=== PATIENT | female | born 1990 | race Caucasian/White ===

== ENCOUNTER 2017-09-04 08:11 | Inpatient (IN) | payer OTHER ==
[~2017-09-04] VITALS: Ht 167.6 cm; Wt 75.0 kg
[~2017-09-04 08:11] MED LIST: AMOXICILLIN500 MG PO; NORCO 5-325 TA1 EACH PO; PROTONIX40 MG PO; ZOFRAN ODT4 MG PO
--- NOTE | 2017-09-10 16:53 | PR ---
[facility] [address] [place], [place] [address] Signed Progress Notes IP Datetime Report Generated by CPN: 09/10/2017 16:53 PROGRESS NOTES: [id number] Impression: Normal progression of labor; Reassuring heart rate Procedures: Epidural Placement Plan: Continue present management Other Plans: Pt requesting epidural Informed Consent Obtain: Vaginal Delivery VITAL SIGNS: [id number] Vital Signs: Reviewed; Within Normal Limits EXAM: [id number] Dilatation: 8.0 Effacement: 95 Station: -2 Uterine Contractions: q2-3m MEMBRANES: [id number] Membrane Status: Ruptured Amniotic Fluid Color: Clear Comments: Pt seen and evaluated. Doing well. Comfortable w/ epidural. Anticipate . Fetus A: [id number] FHR Baseline: 135 Variability: Moderate 6-25bpm Accelerations: 15X15 Decelerations: None FHR Category: Category I Presentation: Vertex Comments on Fetus A: No evidence of metabolic acidosis Fetus B: [id number] Signing Physician: Shae Leonard DO CC: *Electronically Signed* 09/10/17 1657 SHAE LEONARD DO PATIENT NAME: KEELYCARRIJanuary PROGRESS NOTE DATE OF : 89 PHYSICIAN: SHAE LEONARD DO RPT #: [id number] REPORT IS CONFIDENTIAL AND NOT TO BE RELEASED WITHOUT AUTHORIZATION
== END 2017-09-12 11:25 | disposition home or self-care (01) | DRG 775 ==
LOC: FBCO → EDSTATUS 08:11 → FBCO 11:13 → FBC 09-10 08:16
PROVIDERS: ADMIT Obstetrics & Gynecology
PROC: 10E0XZZ Delivery of Products of Conception, External Approach (ICD-10-PCS; principal; 2017-09-10)
PROC: 0KQM0ZZ Repair Perineum Muscle, Open Approach (ICD-10-PCS; 2017-09-10)
PROC: 10907ZC Drainage of Amniotic Fluid, Therapeutic from Products of Conception, Via Natural or Artificial Opening (ICD-10-PCS; 2017-09-10)
PROC: 00HU33Z Insertion of Infusion Device into Spinal Canal, Percutaneous Approach (ICD-10-PCS; 2017-09-10)
PROC: 3E0R3BZ Introduction of Anesthetic Agent into Spinal Canal, Percutaneous Approach (ICD-10-PCS; 2017-09-10)
DX: O70.1 Second degree perineal laceration during delivery (principal); Z37.0 Single live birth; Z3A.40 40 weeks gestation of pregnancy; O99.334 Smoking (tobacco) complicating childbirth; F17.210 Nicotine dependence, cigarettes, uncomplicated
CPT/HCPCS: 01960; 85027; 99406; J2590; J2795; J7120

== ENCOUNTER 2018-10-23 17:58 | Emergency (ER) | payer OTHER ==
[~2018-10-23] VITALS: Ht 167.6 cm; Wt 64.9 kg
== END 2018-10-23 21:55 | disposition home or self-care (01) ==
LOC: ED 17:58
DX: O02.1 Missed abortion (principal); F17.200 Nicotine dependence, unspecified, uncomplicated; Z3A.01 Less than 8 weeks gestation of pregnancy
CPT/HCPCS: 76801; 76817; 80048; 81001; 84702; 85025; 86900; 86901; 99284-25

== ENCOUNTER 2020-09-25 12:58 | Emergency (ER) | payer OTHER ==
[~2020-09-25] VITALS: Ht 167.6 cm; Wt 59.0 kg
[2020-09-25] MEDS ORDERED: ZOFRAN4 MG PO (15:41)
== END 2020-09-25 15:51 | disposition home or self-care (01) ==
LOC: ED 12:58
DX: R11.2 Nausea with vomiting, unspecified (principal); F12.90 Cannabis use, unspecified, uncomplicated; R10.13 Epigastric pain
CPT/HCPCS: 71045; 80053; 81001; 83690; 84703; 85025; 96374; 96375; 99284-25; J1630; J2270; J2405; J7030

== ENCOUNTER 2021-04-21 15:04 | Emergency (ER) | payer OTHER ==
[~2021-04-21] VITALS: Ht 167.6 cm; Wt 59.0 kg
[~2021-04-21 15:04] MED LIST changes: +ZOFRAN4 MG PO
--- OUTSIDE RECORDS SUMMARY | 2021-04-21 15:14 | XMS ---
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 Tamir has no Care Guidelines for this patient. [place] [facility] (12 MO[address] [facility] NOTE: Visits indicate total known visits. ED/C VISIT TRACKING (12 MO.) [facility] COMPLAINT: - VAGINAL BLEEDING,CRAMPS 04/21/2021 13:46 [facility] [place] TYPE: Emergency COMPLAINT: - VAGINAL BLEEDING,CRAMPS 09/25/2020 12:59 [facility] [place] TYPE: Emergency COMPLAINT: - ABDOMINAL PAIN DIAGNOSES: - Nausea with vomiting, unspecified - Epigastric pain - Cannabis use, unspecified, uncomplicated INPATIENT VISIT TRACKING (12 MO.) No inpatient visits to display in this time frame [email or web address]
== END 2021-04-21 19:01 | disposition home or self-care (01) ==
LOC: ED 15:04
DX: O20.0 Threatened abortion (principal); Z3A.01 Less than 8 weeks gestation of pregnancy
CPT/HCPCS: 76801; 76817; 81001; 84702; 85025; 99284-25

== ENCOUNTER 2021-06-02 14:04 | Emergency (ER) | payer OTHER ==
[~2021-06-02] VITALS: Ht 167.6 cm; Wt 59.0 kg
[2021-06-02] MEDS ORDERED: REGLAN10 MG PO (16:59)
[2021-06-02] MEDS ORDERED: PEPCID20 MG PO (16:59)
[2021-06-02] MEDS ORDERED: ONDANSETRON ODT8 MG PO (16:59)
== END 2021-06-02 17:12 | disposition home or self-care (01) ==
LOC: ED 14:04
DX: O99.611 Diseases of the digestive system complicating pregnancy, first trimester (principal); K29.00 Acute gastritis without bleeding; O99.891 Other specified diseases and conditions complicating pregnancy; R11.15 Cyclical vomiting syndrome unrelated to migraine; Z3A.13 13 weeks gestation of pregnancy; Z87.891 Personal history of nicotine dependence
CPT/HCPCS: 80053; 83690; 83735; 85007; 85025; 96374; 96375; 96376; 99284-25; J1170; J2405; J2765; J7030

== ENCOUNTER 2021-06-02 20:56 | Emergency (ER) | payer OTHER ==
[~2021-06-02] VITALS: Ht 167.6 cm; Wt 59.0 kg
[~2021-06-02 20:56] MED LIST changes: +ONDANSETRON ODT8 MG PO; +PEPCID20 MG PO; +REGLAN10 MG PO
--- OUTSIDE RECORDS SUMMARY | 2021-06-02 21:04 | XMS ---
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 CRITERIA MET - [facility] - 2 Visits in 30 Days CARE PROVIDERS There are no care providers on record at this time. Tamir has no Care Guidelines for this patient. [facility] NOTE: Visits indicate total known visits. ED/C VISIT TRACKING (12 MO.) 06/02/2021 20:57 [facility] [place] TYPE: Emergency COMPLAINT: - VAGINAL BLEEDING 13WKS 06/02/2021 14:05 [facility] [place] TYPE: Emergency COMPLAINT: - N/V, 13 WEEKS GESTION 04/21/2021 15:05 [facility] [place] TYPE: Emergency COMPLAINT: - VAGINAL BLEEDING,CRAMPS DIAGNOSES: - Less than 8 weeks gestation of - Threatened 04/21/2021 13:46 [facility] [place] TYPE: Emergency COMPLAINT: - VAGINAL BLEEDING,CRAMPS 09/25/2020 12:59 [facility] [place] TYPE: Emergency COMPLAINT: - ABDOMINAL PAIN DIAGNOSES: - Nausea with vomiting, unspecified - Epigastric pain - Cannabis use, unspecified, uncomplicated INPATIENT VISIT TRACKING (12 MO.) No inpatient visits to display in this time frame [email or web address]
== END 2021-06-02 22:50 | disposition home or self-care (01) ==
LOC: ED 20:56
DX: O20.9 Hemorrhage in early pregnancy, unspecified (principal); Z87.891 Personal history of nicotine dependence; Z79.899 Other long term (current) drug therapy; Z3A.13 13 weeks gestation of pregnancy
CPT/HCPCS: 99283

== ENCOUNTER 2021-11-06 17:28 | Inpatient (IN) | payer OTHER ==
[~2021-11-06] VITALS: Ht 166.4 cm; Wt 68.0 kg
[~2021-11-06 17:28] MED LIST changes: +PRENATAL VITAM1 EACH PO
--- NOTE | 2021-11-07 19:19 | PR ---
[facility] [address] [place], [place] [address] Signed PP Progress Notes Datetime Report Generated by CPN: 11/07/2021 19:19 SUBJECTIVE: [id number] Pain: Within Normal Limits Nausea/Vomiting: Denies Flatus: Yes Bowel Movement: Yes Vital Signs: [id number] Vital Signs: Reviewed; Within Normal Limits Cardiovascular: Normal Respiratory: Normal Abdomen/Uterus: Normal Lochia: Normal Vulva/Perineum: Not Done Breasts: Not Done CVA Tenderness: Normal Extremities: Normal Incision: Not Applicable Progress: Normal Exam Comments: Fundus firm U-2 nontender IMPRESSION/PLAN/PROCEDURES: [id number] Impression: Normal Progression Plan: Continue Present Management Progress Notes: Pt seen and examined. Doing well. Ambulating, voiding, and tolerating full diet. Pain and lochia minimal. well. No fevers/chills or other concerns. All questions answered to the best of my ability and to patient's apparent satisfaction Signing Physician: Shae Leonard DO Copies: ~ *Electronically Signed* 11/07/211918 SHAE LEONARD DO PATIENT NAME: KEELYNIA Caruso JANUARY PROGRESS NOTE DATE OF : 89 PHYSICIAN: SHAE LEONARD DO RPT #: [id number] REPORT IS CONFIDENTIAL AND NOT TO BE RELEASED WITHOUT AUTHORIZATION
--- NOTE | 2021-11-08 07:53 | PR ---
[facility] [place] [facility] [address] [facility] [place], [place] [address] Signed PP Progress Notes Datetime Report Generated by CPMukesh: 11/08/2021 07:53 SUBJECTIVE: [id number] Pain: Within Normal Limits Nausea/Vomiting: Denies Flatus: Yes Bowel Movement: Yes Vital Signs: [id number] Vital Signs: Reviewed; Within Normal Limits Cardiovascular: Normal Respiratory: Normal Abdomen/Uterus: Normal Lochia: Normal Vulva/Perineum: Not Done Breasts: Not Done CVA Tenderness: Normal Extremities: Normal Incision: Not Applicable Progress: Normal Exam Comments: Fundus firm U-2 nontender IMPRESSION/PLAN/PROCEDURES: [id number] Impression: Normal Progression Plan: Discharge Progress Notes: Pt seen and examined. Doing well. Ambulating, voiding, and toleraitng full diet. Pain and lochia minimal. with some latching issues; working with . No fevers/chills. [facility] and anticipate d/c of in next 1-2 days. Reviewed labor/delivery, instructions, and contraception in detail. Planning IUD Signing Physician: Shae Leonard DO Copies: ~ *Electronically Signed* 11/08/21 0753 SHAE LEONARD DO PATIENT NAME: NIA RIGGS JANUARY PROGRESS NOTE DATE OF : 89 PHYSICIAN: SHAE LEONARD DO RPT #: [id number] REPORT IS CONFIDENTIAL AND NOT TO BE RELEASED WITHOUT AUTHORIZATION
== END 2021-11-08 08:20 | disposition home or self-care (01) | DRG 806 ==
LOC: FBCO 17:28 → FBC 19:09
PROVIDERS: ADMIT Obstetrics & Gynecology; ATTEND Obstetrics & Gynecology
PROC: 10E0XZZ Delivery of Products of Conception, External Approach (ICD-10-PCS; principal; 2021-11-06)
PROC: 00HU33Z Insertion of Infusion Device into Spinal Canal, Percutaneous Approach (ICD-10-PCS; 2021-11-06)
PROC: 3E0R3BZ Introduction of Anesthetic Agent into Spinal Canal, Percutaneous Approach (ICD-10-PCS; 2021-11-06)
PROC: 10907ZC Drainage of Amniotic Fluid, Therapeutic from Products of Conception, Via Natural or Artificial Opening (ICD-10-PCS; 2021-11-06)
DX: O60.13X0 Preterm labor second trimester with preterm delivery third trimester, not applicable or unspecified (principal); O99.324 Drug use complicating childbirth; Z37.0 Single live birth; O99.824 Streptococcus B carrier state complicating childbirth; Z20.822 Contact with and (suspected) exposure to COVID-19; O77.0 Labor and delivery complicated by meconium in amniotic fluid; Z87.891 Personal history of nicotine dependence; Z67.10 Type A blood, Rh positive
CPT/HCPCS: 81001; 85027; A9270; J2540; J2590; J2795; J3010; J7121; U0003

== ENCOUNTER 2022-02-23 12:24 | Emergency (ER) | payer OTHER ==
[~2022-02-23] VITALS: Ht 152.4 cm; Wt 61.2 kg
[2022-02-23] MEDS ORDERED: PENICILLIN V P500 MG PO (13:44)
[2022-02-23] MEDS ORDERED: HYDROCODON-ACE1 EA11 PO (13:44)
== END 2022-02-23 14:20 | disposition home or self-care (01) ==
LOC: ED 12:24
DX: K02.9 Dental caries, unspecified (principal); Z87.891 Personal history of nicotine dependence; Z79.899 Other long term (current) drug therapy
CPT/HCPCS: 64400; 99282-25; A9270

== ENCOUNTER 2022-12-26 11:08 | Emergency (ER) | payer OTHER ==
[~2022-12-26] VITALS: Ht 152.4 cm; Wt 61.2 kg
[~2022-12-26 11:08] MED LIST changes: +HYDROCODON-ACE1 EA11 PO; +PENICILLIN V P500 MG PO
[2022-12-26] MEDS ORDERED: DICLOXACILLIN500 MG PO (11:52)
[2022-12-26] MEDS ORDERED: HYDROCODON-ACE1 EA10 PO (12:00)
== END 2022-12-26 12:07 | disposition home or self-care (01) ==
LOC: ED 11:08
DX: N61.0 Mastitis without abscess (principal); Z87.891 Personal history of nicotine dependence
CPT/HCPCS: 99283

== ENCOUNTER 2023-12-17 08:07 | Emergency (ER) | payer OTHER ==
[~2023-12-17] VITALS: Ht 170.2 cm; Wt 61.7 kg
[~2023-12-17 08:07] MED LIST changes: +DICLOXACILLIN500 MG PO; +HYDROCODON-ACE1 EA10 PO
[2023-12-17] MEDS ORDERED: ondansetron HCL 4 MG/2 ML VIAL IV ONE (08:30)
[2023-12-17] MEDS ORDERED: SODIUM CHLORIDE 0.9% 1,000 ML IV PRN (08:30)
[2023-12-17] MEDS ORDERED: KETOROLAC TROMETHAMINE 30 MG/ML VIAL IV ONE (08:30)
[2023-12-17 08:35] LABS: BASOPHILS 0.2 % (0-2); EOSINOPHILS 0.8 % (0-6); HEMATOCRIT 43.2 % (35.0-50.0); HEMOGLOBIN 14.6 g/dL (12.0-18.0); LYMPHOCYTES 12.6 % (24-44); MCH 29.7 (27-36); MCHC 33.7 g/dl (30-36); MCV 88.2 fl (81-99); MONOCYTES 8.9 % (0-12); NEUTROPHILS 77.5 % (39-80); PLATELET COUNT 365 K/uL (140-440); RDW 13.6 (10.5-15.0)
[2023-12-17 08:43] LABS: ANION GAP 15.5 (7-21); BUN/CREATININE RATIO 14.28 (6.0-28.6); CALCIUM 8.7 mg/dL (8.5-10.1); CREATININE, SERUM 0.63 mg/dL (0.55-1.02); POTASSIUM 3.5 mmol/L (3.5-5.1)
[2023-12-17 09:04] LABS: INFLUENZA B NAA NEGATIVE (NEGATIVE); RESPIRATORY SYNCYTIAL VIR NAA NEGATIVE (NEGATIVE)
[2023-12-17] MEDS ORDERED: ONDANSETRON ODT4 MG PO (09:25)
[2023-12-17] MEDS ORDERED: CYCLOBENZAPRINE10 MG PO (09:25)
[2023-12-17] MEDS ORDERED: TAMIFLU75 MG PO (09:25)
[2023-12-17 09:59] VITALS: BP 114/71
== END 2023-12-17 09:54 | disposition home or self-care (01) ==
LOC: ED 08:07
PROVIDERS: Family Medicine
DX: J10.1 Influenza due to other identified influenza virus with other respiratory manifestations (principal); Z87.891 Personal history of nicotine dependence
CPT/HCPCS: 36415; 80048; 85025; 87502; 96361; 96374; 96375; 99284-25; J1885; J2405; J7030; U0002

== ENCOUNTER 2024-08-07 16:45 | Emergency (ER) | payer OTHER ==
[~2024-08-07] VITALS: Ht 170.2 cm; Wt 75.6 kg
[~2024-08-07 16:45] MED LIST changes: +CYCLOBENZAPRINE10 MG PO; +ONDANSETRON ODT4 MG PO; +PRENATAL FORMU1 EAC3 PO; +TAMIFLU75 MG PO; +VENTOLIN HFA18 GM INH
--- OUTSIDE RECORDS SUMMARY | 2024-08-07 16:52 | XMS ---
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 PHONE: [phone] Tamir has no Care Guidelines for this patient. E.D. VISIT COUNT (12 MO.) [address] [facility] TOTAL 3 NOTE: Visits indicate total known visits. 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
[2024-08-07 17:25] LABS: BASOPHILS 0.3 % (0-2); EOSINOPHILS 2.1 % (0-6); HEMOGLOBIN 12.9 g/dL (12.0-18.0); LYMPHOCYTES 20.4 % (24-44); MCH 31.4 (27-36); MCHC 34.9 g/dl (30-36); MONOCYTES 5.6 % (0-12); NEUTROPHILS 71.6 % (39-80); PLATELET COUNT 357 K/uL (140-440); RBC 4.11 M/ul (4.3-5.7); RDW 13.7 (10.5-15.0)
[2024-08-07 17:32] LABS: ABO A; RH POSITIVE
[2024-08-07 17:50] LABS: ALBUMIN 2.8 g/dL (3.4-5.0); ALBUMIN/GLOBULIN RATIO 0.7 (1.1-2.4); ANION GAP 15.6 (7-21); BILIRUBIN, TOTAL 0.2 ng/dL (0.2-1.0); CALCIUM 8.9 mg/dL (8.5-10.1); CREATININE, SERUM 0.44 mg/dL (0.55-1.02); POTASSIUM 3.6 mmol/L (3.5-5.1); PROTEIN, TOTAL 6.8 g/dL (6.4-8.2)
[2024-08-07 18:27] LABS: BILIRUBIN, URINE NEGATIVE (negative); BLOOD/HGB, URINE LARGE (Negative); KETONE, URINE NEGATIVE (Negative); LEUK ESTERASE, URINE NEGATIVE (negative); NITRITE, URINE NEGATIVE (negative)
[2024-08-07 18:36] LABS: BACTERIA, URINE NONE SEEN /hpf (negative); CASTS, URINE NONE SEEN \\lpf; COLLECTION TYPE, URINE CLEAN CATCH; CRYSTALS, URINE NONE SEEN (0-1+); EPITHELIAL CELLS, URINE SQUAMOUS 2+ /lpf (0-1+); REFLEX CULTURE, URINE No (No); WHITE BLOOD CELLS, URINE 0-1 /HPF (0-5)
[2024-08-07 20:04] VITALS: BP 98/57
== END 2024-08-07 20:08 | disposition home or self-care (01) ==
LOC: ED 16:45
PROVIDERS: Emergency Medicine
DX: O20.9 Hemorrhage in early pregnancy, unspecified (principal); Z3A.16 16 weeks gestation of pregnancy; Z87.891 Personal history of nicotine dependence
CPT/HCPCS: 36415; 76815; 80053; 81001; 84702; 85025; 86900; 86901; 99284-25

== ENCOUNTER 2024-10-11 17:28 | Observation (INO) | payer OTHER ==
[2024-10-11 18:13] LABS: BASOPHILS 0.3 % (0-2); EOSINOPHILS 1.6 % (0-6); HEMOGLOBIN 12.7 g/dL (12.0-18.0); LYMPHOCYTES 19.4 % (24-44); MCH 31.9 (27-36); MCHC 34.4 g/dl (30-36); MCV 92.7 fl (81-99); MONOCYTES 6.4 % (0-12); NEUTROPHILS 72.3 % (39-80); PLATELET COUNT 349 K/uL (140-440); RBC 3.99 M/ul (4.3-5.7)
[2024-10-11 22:13] VITALS: BP 124/58
[2024-10-12 06:05] LABS: HEMATOCRIT 38.5 % (35.0-50.0); HEMOGLOBIN 13.1 g/dL (12.0-18.0); MCH 31.4 (27-36); MCHC 34.1 g/dl (30-36); MCV 92.1 fl (81-99); RBC 4.18 M/ul (4.3-5.7)
[2024-10-13 14:53] LABS: FETAL HGB - PERCENT FETAL RBCS 0.006 % (0.000-0.124)
== END 2024-10-12 09:12 | disposition home or self-care (01) ==
LOC: FBCO 17:28 → FBC 20:43
PROVIDERS: ADMIT Student in an Organized Health Care Education/Training Program; ATTEND Student in an Organized Health Care Education/Training Program
DX: O46.92 Antepartum hemorrhage, unspecified, second trimester (principal); Z3A.25 25 weeks gestation of pregnancy
CPT/HCPCS: 36415; 76815; 85025; 85027; 86356; G0378

== ENCOUNTER 2024-10-17 07:15 | Observation (INO) | payer OTHER ==
[2024-10-17 09:11] LABS: BASOPHILS 0.6 % (0-2); EOSINOPHILS 1.8 % (0-6); HEMATOCRIT 37.1 % (35.0-50.0); HEMOGLOBIN 12.7 g/dL (12.0-18.0); LYMPHOCYTES 13.8 % (24-44); MCH 31.4 (27-36); MCHC 34.3 g/dl (30-36); MCV 91.8 fl (81-99); MONOCYTES 5.5 % (0-12); NEUTROPHILS 78.3 % (39-80); PLATELET COUNT 342 K/uL (140-440); RBC 4.04 M/ul (4.3-5.7); RDW 14.1 (10.5-15.0)
[2024-10-17 09:59] LABS: ABO A; RH POSITIVE
[2024-10-17 10:00] LABS: ANTIBODY SCREEN NEGATIVE
--- NOTE | 2024-10-17 17:39 | PR ---
[facility] [address] [place], [place] [address] Signed AP Progress Notes Datetime Report Generated by CPN: 10/17/2024 17:39 Chief Complaint: Bleeding EGA: 25.2 PHYSICAL EXAM: [id number] General: Normal Cardiovascular: Normal Respiratory: Normal Back: Normal Abdomen: Normal Extremities: Normal Physical Exam Comments: No additional bleeding since admission. No cramping or loss of fluid. Normal US. Uterus nontender. Pt strongly desires d/c home Impression: IUP @ 26w1d 2nd trimester bleeding likely secondary to friable cervix Plan: Reviewed continued observation overnight vs discharge home. Pt strongly desires d/c home tonight. Reviewed 2nd trimester bleeding and likely due to friable cervix. Normal placenta and DANAE on US. No evidence of abruption. Pt understands and agrees. Recommend pelvic rest. Reviewed indications for evaluation on FBC. VITAL SIGNS: [id number] Vital Signs: Reviewed; Within Normal Limits EXAM: [id number] Dilatation: 0.0 Contraction Comments: None MEMBRANES: [id number] Pooling: Negative FETUS A: [id number] FHR Baseline: 150 Variability: Moderate 6-25bpm Accelerations: 10X10 Deceleration: None FHR Category: Category I FHR Comments: Reassuring for age Gestation by US: 25.4 Presentation: Vertex FETUS B: [id number] PROGRESS NOTES: [id number] Signing Physician: Shae Leonard DO *Electronically Signed* 10/17/24 7864 SHAE LEONARD (DEEDEE) DO PATIENT NAME: NIA RIGGS JANUARY PROGRESS NOTE DATE OF : 89 PHYSICIAN: SHAE LEONARD (JD) DO RPT #: [id number] REPORT IS CONFIDENTIAL AND NOT TO BE RELEASED WITHOUT AUTHORIZATION [facility] [address] [place] [address] [place] [address] Signed Copies: ~ *Electronically Signed* 10/17/24 1739 SHAE LEONARD) DO PATIENT NAME: NIA RIGGS JANUARY PROGRESS NOTE DATE OF : 89 PHYSICIAN: SHAE LEONARD (JD) DO RPT #: [id number] REPORT IS CONFIDENTIAL AND NOT TO BE RELEASED WITHOUT AUTHORIZATION
== END 2024-10-17 17:45 | disposition home or self-care (01) ==
LOC: FBCO 07:15 → FBC 08:40
PROVIDERS: ADMIT Obstetrics & Gynecology; ATTEND Obstetrics & Gynecology
DX: O46.92 Antepartum hemorrhage, unspecified, second trimester (principal); Z3A.26 26 weeks gestation of pregnancy
CPT/HCPCS: 36415; 76815; 76817; 85025; 86850; 86900; 86901; G0378